=== PATIENT | male | born 1945 | race Two or more races ===

== ENCOUNTER 2019-07-30 09:55 | Emergency (ER) | payer OTHER ==
[~2019-07-30] VITALS: Ht 172.7 cm; Wt 81.2 kg
[2019-07-30] MEDS ORDERED: METFORMIN HCL500 MG (10:12)
[2019-07-30] MEDS ORDERED: COZAAR25 MG (10:14)
[2019-07-30] MEDS ORDERED: ASPIR 8181 MG (10:15)
== END 2019-07-30 12:52 | disposition home or self-care (01) ==
LOC: ER 09:55
DX: S00.83XA Contusion of other part of head, initial encounter (principal); M54.2 Cervicalgia; W18.09XA Striking against other object with subsequent fall, initial encounter; Y93.89 Activity, other specified; Y92.098 Other place in other non-institutional residence as the place of occurrence of the external cause; Y99.8 Other external cause status

== ENCOUNTER 2019-08-01 10:57 | Outpatient (CLI) | payer OTHER ==
[~2019-08-01 10:57] MED LIST: ASPIR 8181 MG; COZAAR25 MG; METFORMIN HCL500 MG
== END 2019-08-01 15:14 | disposition home or self-care (01) ==
LOC: MRI 10:57
PROVIDERS: ATTEND Emergency Medicine
DX: M54.2 Cervicalgia (principal)
CPT/HCPCS: 72141

== ENCOUNTER 2019-10-10 10:42 | Outpatient (CLI) | payer OTHER | END 2019-10-10 10:45 | disposition home or self-care (01) | LOC: RAD 10:42 | PROVIDERS: ATTEND Physical Medicine & Rehabilitation | DX: M23.222 Derangement of posterior horn of medial meniscus due to old tear or injury, left knee (principal); M17.12 Unilateral primary osteoarthritis, left knee ==

== ENCOUNTER → 2019-10-11 | Outpatient (CLI) | payer OTHER | END | disposition home or self-care (01) | LOC: MRI 11:15 | PROVIDERS: ATTEND Physical Medicine & Rehabilitation | DX: M23.222 Derangement of posterior horn of medial meniscus due to old tear or injury, left knee (principal); M17.12 Unilateral primary osteoarthritis, left knee | CPT/HCPCS: 73721 ==

== ENCOUNTER 2019-10-19 07:12 | Outpatient (CLI) | payer OTHER | END 2019-10-19 07:15 | disposition home or self-care (01) | LOC: NUCLEAR 07:12 | PROVIDERS: ATTEND Internal Medicine Cardiovascular Disease | DX: R07.89 Other chest pain (principal); R94.31 Abnormal electrocardiogram [ECG] [EKG] | CPT/HCPCS: 78452; 93017; A9500; J0153 ==

== ENCOUNTER 2020-07-29 07:16 | Outpatient (CLI) | payer OTHER | END 2020-07-29 07:27 | disposition home or self-care (01) | LOC: RAD 07:16 → MRI 08:15 | PROVIDERS: ATTEND General Practice | DX: R42 Dizziness and giddiness (principal); R51.9 Headache, unspecified; I10 Essential (primary) hypertension | CPT/HCPCS: 70553; 71046; A9575 ==

== ENCOUNTER 2021-10-08 07:45 | Outpatient (CLI) | payer OTHER | END 2021-10-08 15:17 | disposition home or self-care (01) | LOC: TOM 07:45 | DX: R10.9 Unspecified abdominal pain (principal); R63.4 Abnormal weight loss | CPT/HCPCS: 71260; 74177; Q9965 ==

== ENCOUNTER 2022-02-17 04:17 | Emergency (ER) | payer OTHER ==
[~2022-02-17] VITALS: Ht 172.7 cm; Wt 81.6 kg
== END 2022-02-17 15:28 | disposition home or self-care (01) ==
LOC: ER 04:17
DX: E87.6 Hypokalemia (principal); S09.90XA Unspecified injury of head, initial encounter; R42 Dizziness and giddiness; E11.9 Type 2 diabetes mellitus without complications; I10 Essential (primary) hypertension